=== PATIENT | male | born 1945 | race Hispanic/Latino ===

== ENCOUNTER → 2017-10-07 | Outpatient (CLI) | payer OTHER | END | disposition home or self-care (01) | LOC: OIH 15:23 | PROVIDERS: ATTEND Family Medicine | DX: I51.7 Cardiomegaly (principal); J90 Pleural effusion, not elsewhere classified | CPT/HCPCS: 71046 ==

== ENCOUNTER → 2017-11-07 | Outpatient (CLI) | payer OTHER | END | disposition home or self-care (01) | LOC: RAH 08:55 | PROVIDERS: ATTEND Family Medicine | DX: I70.90 Unspecified atherosclerosis (principal) | CPT/HCPCS: 76700; 93925 ==

== ENCOUNTER → 2018-05-16 | Outpatient (CLI) | payer OTHER ==
[~2018-05-16] MED LIST: ALBUMIN (HUMAN) 25% 200 ML IV SCH
[2018-05-16 08:44] LABS: INR 1.29 (0.85-1.15); PARTIAL THROMBOPLASTIN TIME 31.1 SEC (26.3-35.5); PROTHROMBIN TIME 13.5 SEC (9.6-11.6)
[2018-05-16 11:49] LABS: APPEARANCE BODY FLUID CLEAR (CLEAR); COLOR,BODY FLUID YELLOW (LT YELLOW); SPECIMENTYPE,BODY FLUID ASCITES
[2018-05-16 11:50] LABS: BODY FLUID RBC 33 /cu. mm.; BODY FLUID WBC 63 /cu. mm.; TOTAL VOLUME,BODY FLUID 6300 mL
[2018-05-16 12:08] LABS: BF LYMPHOCYTE 50 %; BF MESOTHELIAL 13 %; BF MONOCYTE 16 %
== END ==
LOC: RAH 07:58
PROVIDERS: ATTEND Family Medicine
DX: R18.8 Other ascites (principal)
CPT/HCPCS: 36415; 49083; 85610; 85730; 87071; 87205; 89051; 96365; A4215; P9046

== ENCOUNTER → 2018-06-06 | Outpatient (CLI) | payer OTHER ==
[~2018-06-06] MED LIST changes: -ALBUMIN (HUMAN) 25% 200 ML IV SCH; +ALBUMIN (HUMAN) 25% 50 ML IV SCH; +LIDOCAINE HCL 1% 20 ML VIAL ONE
[2018-06-06 09:35] LABS: INR 1.35 (0.85-1.15); PARTIAL THROMBOPLASTIN TIME 31.2 SEC (26.3-35.5); PROTHROMBIN TIME 14.1 SEC (9.6-11.6)
[2018-06-06 14:55] LABS: APPEARANCE BODY FLUID SLIGHTLY CLOUDY (CLEAR); BODY FLUID WBC 87 /cu. mm.; COLOR,BODY FLUID YELLOW (LT YELLOW); SPECIMENTYPE,BODY FLUID ASCITES; TOTAL VOLUME,BODY FLUID 7300 mL
[2018-06-06 14:56] LABS: BODY FLUID RBC 85 /cu. mm.
[2018-06-06 15:31] LABS: BF LYMPHOCYTE 30 %; BF MONOCYTE 31 %
== END ==
LOC: RAH 07:53
PROVIDERS: ATTEND Family Medicine
DX: K70.31 Alcoholic cirrhosis of liver with ascites (principal); E78.5 Hyperlipidemia, unspecified; F32.1 Major depressive disorder, single episode, moderate; Z95.0 Presence of cardiac pacemaker; J44.9 Chronic obstructive pulmonary disease, unspecified; E26.1 Secondary hyperaldosteronism; I50.42 Chronic combined systolic (congestive) and diastolic (congestive) heart failure; I42.9 Cardiomyopathy, unspecified; I73.9 Peripheral vascular disease, unspecified; G89.4 Chronic pain syndrome; N18.3 Chronic kidney disease, stage 3 (moderate); Z98.890 Other specified postprocedural states; Z82.49 Family history of ischemic heart disease and other diseases of the circulatory system
CPT/HCPCS: 36415; 49083; 85610; 85730; 87071; 87205; 89051; 96365; A4215; P9047

== ENCOUNTER 2018-06-20 17:27 | Observation (INO) | payer OTHER ==
[~2018-06-20] VITALS: Ht 167.6 cm; Wt 74.5 kg
[2018-06-20 18:33] LABS: BASOPHILS % (AUTO) 0.9 % (0.0-5.0); EOSINOPHILS % (AUTO) 3.6 % (0.0-8.0); HEMATOCRIT 34.7 % (42-54); LYMPHOCYTES % (AUTO) 11.8 % (21.0-51.0); MEAN CORPUSCULAR HEMOGLOBIN 31.3 pg (27.0-33.0); MEAN CORPUSCULAR VOLUME 94.8 fL (79-99); MONOCYTES % (AUTO) 11.9 % (3.0-13.0); NEUTROPHILS % (AUTO) 71.8 % (40.0-77.0); NUCLEATED RED BLOOD CELLS 0.1 % (0.0-0.19); PLATELET COUNT (AUTO) 143 K/uL (130-400); RED BLOOD CELL COUNT(AUTO) 3.66 MIL/uL (4.50-6.20); RED CELL DISTRIBUTION WIDTH 14.9 % (11.0-15.5); WHITE BLOOD COUNT (AUTO) 5.8 K/uL (4.8-10.8)
[2018-06-20 18:48] LABS: CREATININE 1.5 mg/dL (0.5-1.5); INR 1.27 (0.85-1.15); PARTIAL THROMBOPLASTIN TIME 29.6 SEC (26.3-35.5); POTASSIUM 3.6 mmol/L (3.5-5.1); PROTHROMBIN TIME 13.3 SEC (9.6-11.6)
[2018-06-20 19:01] LABS: ALBUMIN 2.7 g/dL (3.5-5.0); BILIRUBIN,TOTAL 1.8 mg/dL (0.2-1.0); TOTAL PROTEIN, SERUM 6.7 g/dL (6.0-8.3)
[2018-06-20 19:08] LABS: B-TYPE NATRIURETIC PEPTIDE 2520 pg/mL (0-100)
[2018-06-20 20:32] LABS: APPEARANCE,URINE Clear (CLEAR); BILIRUBIN,URINE Negative (NEGATIVE); COLOR,URINE Yellow (YELLOW); GLUCOSE, URINE (UA) Negative (NEGATIVE); KETONES,URINE Negative (NEGATIVE); LEUKOCYTE ESTERASE ,URINE Negative (NEGATIVE); NITRATE,URINE Negative (NEGATIVE); OCCULT BLOOD,URINE Negative (NEGATIVE); PH,URINE 5.5 (5.0-8.0); PROTEIN,URINE Negative (NEGATIVE)
[2018-06-20] MEDS ORDERED: FUROSEMIDE 10 MG/ML 4ML VIAL ONE (22:15)
[2018-06-21 00:31] VITALS: BP 102/63
[2018-06-21] MEDS ORDERED: ONDA4TAB9 PO (02:17)
[2018-06-21] MEDS ORDERED: QUET25TA74 PO (02:17)
[2018-06-21] MEDS ORDERED: METO5TAB7 PO (02:17)
[2018-06-21] MEDS ORDERED: SPIR25TA6 PO (02:17)
[2018-06-21] MEDS ORDERED: TRAZ-185 PO (02:17)
[2018-06-21] MEDS ORDERED: SERT25TA5 PO (02:17)
[2018-06-21] MEDS ORDERED: SIMV40TA5 PO (02:17)
[2018-06-21] MEDS ORDERED: LACT10SO PO (02:17)
[2018-06-21] MEDS ORDERED: FURO40TA5 PO (02:17)
[2018-06-21] MEDS ORDERED: CARV3.12 PO (02:17)
[2018-06-21 03:54] VITALS: BP 93/62
[2018-06-21 04:01] VITALS: BP 93/62
[2018-06-21 04:18] LABS: HEMATOCRIT 33.3 % (42-54); MEAN CORPUSCULAR HEMOGLOBIN 31.4 pg (27.0-33.0); MEAN CORPUSCULAR HGB CONC 33.2 g/dL (32.0-36.0); MEAN CORPUSCULAR VOLUME 94.5 fL (79-99); NUCLEATED RED BLOOD CELLS 0.1 % (0.0-0.19); PLATELET COUNT (AUTO) 129 K/uL (130-400); RED BLOOD CELL COUNT(AUTO) 3.52 MIL/uL (4.50-6.20); RED CELL DISTRIBUTION WIDTH 14.7 % (11.0-15.5); WHITE BLOOD COUNT (AUTO) 5.5 K/uL (4.8-10.8)
[2018-06-21 04:33] LABS: INR 1.28 (0.85-1.15); PARTIAL THROMBOPLASTIN TIME 30.7 SEC (26.3-35.5); PROTHROMBIN TIME 13.4 SEC (9.6-11.6)
[2018-06-21 04:49] LABS: ALBUMIN 2.4 g/dL (3.5-5.0); BILIRUBIN,TOTAL 1.6 mg/dL (0.2-1.0); CREATININE 1.5 mg/dL (0.5-1.5); POTASSIUM 3.5 mmol/L (3.5-5.1); TOTAL PROTEIN, SERUM 6.6 g/dL (6.0-8.3)
[2018-06-21 07:00] VITALS: BP 103/72
[2018-06-21] MEDS ORDERED: FUROSEMIDE 10 MG/ML 4ML VIAL IVP SCH (09:00)
[2018-06-21] MEDS ORDERED: ALBUMIN (HUMAN) 25% 200 ML IV SCH (10:57)
[2018-06-21 12:30] VITALS: BP 97/56
[2018-06-21 13:49] LABS: APPEARANCE BODY FLUID CLEAR (CLEAR); COLOR,BODY FLUID YELLOW (LT YELLOW); SPECIMENTYPE,BODY FLUID ASCITES; TOTAL VOLUME,BODY FLUID 7000 mL
[2018-06-21 13:50] LABS: BODY FLUID RBC 49 /cu. mm.; BODY FLUID WBC 62 /cu. mm.
[2018-06-21 14:17] LABS: BF LYMPHOCYTE 33 %; BF MESOTHELIAL 44 %; BF MONOCYTE 7 %
== END 2018-06-21 16:30 | disposition home or self-care (01) ==
LOC: EDH 17:27 → EDHIP 20:51 → 2AH 06-21 00:08
PROVIDERS: ADMIT Family Medicine; ATTEND Family Medicine
DX: I11.0 Hypertensive heart disease with heart failure (principal); I50.22 Chronic systolic (congestive) heart failure; I42.9 Cardiomyopathy, unspecified; K74.60 Unspecified cirrhosis of liver; R18.8 Other ascites
CPT/HCPCS: 36415 ×2; 49083; 71045; 80053 ×2; 81003; 82140; 82550; 83874; 83880; 84484; 85025; 85027; 85610 ×2; 85730 ×2; 87040 ×2; 87071; 87205; 89051; 93005; 96365; 96366; 96375; 99284; A4215; G0378 ×20; J1940 ×2; P9046